=== PATIENT | male | born 1940 | race Caucasian/White ===

== ENCOUNTER → 2017-06-10 07:21 | Outpatient (CLI) | payer OTHER | END | disposition home or self-care (01) | LOC: LAB 07:21 | DX: I10 Essential (primary) hypertension (principal); E78.5 Hyperlipidemia, unspecified ==

== ENCOUNTER → 2018-01-07 | Outpatient (CLI) | payer OTHER | END | disposition home or self-care (01) | LOC: LAB 07:37 | DX: C61 Malignant neoplasm of prostate (principal); I10 Essential (primary) hypertension; E78.00 Pure hypercholesterolemia, unspecified ==

== ENCOUNTER 2018-03-08 07:16 | Outpatient (CLI) | payer OTHER | END 2018-03-08 15:00 | disposition home or self-care (01) | LOC: LAB 07:16 | DX: N40.1 Benign prostatic hyperplasia with lower urinary tract symptoms (principal) ==

== ENCOUNTER 2018-04-15 07:40 | Outpatient (CLI) | payer OTHER | END 2018-04-15 07:50 | disposition home or self-care (01) | LOC: LAB 07:40 | DX: I11.9 Hypertensive heart disease without heart failure (principal); E78.00 Pure hypercholesterolemia, unspecified ==

== ENCOUNTER 2018-05-25 08:10 | Outpatient (CLI) | payer OTHER | END 2018-05-25 19:02 | disposition home or self-care (01) | LOC: LAB 08:10 | DX: Z85.46 Personal history of malignant neoplasm of prostate (principal) ==

== ENCOUNTER 2018-08-24 07:16 | Outpatient (CLI) | payer OTHER | END 2018-08-24 07:33 | disposition home or self-care (01) | LOC: LAB 07:16 | DX: I11.9 Hypertensive heart disease without heart failure (principal); E78.00 Pure hypercholesterolemia, unspecified ==

== ENCOUNTER → 2018-11-04 09:02 | Outpatient (CLI) | payer OTHER | END | disposition home or self-care (01) | LOC: LAB 09:02 | DX: C61 Malignant neoplasm of prostate (principal) ==

== ENCOUNTER 2018-12-15 08:52 | Outpatient (CLI) | payer OTHER | END 2018-12-15 09:17 | disposition home or self-care (01) | LOC: LAB 08:52 | DX: C61 Malignant neoplasm of prostate (principal) ==

== ENCOUNTER 2019-02-14 07:09 | Outpatient (CLI) | payer OTHER | END 2019-02-14 07:13 | disposition home or self-care (01) | LOC: LAB 07:09 | DX: I11.9 Hypertensive heart disease without heart failure (principal); E78.00 Pure hypercholesterolemia, unspecified; C61 Malignant neoplasm of prostate ==

== ENCOUNTER 2019-05-23 07:13 | Outpatient (CLI) | payer OTHER | END 2019-05-23 07:20 | disposition home or self-care (01) | LOC: LAB 07:13 | DX: I10 Essential (primary) hypertension (principal); E78.00 Pure hypercholesterolemia, unspecified ==

== ENCOUNTER 2019-07-14 08:56 | Outpatient (CLI) | payer OTHER | END 2019-07-14 15:00 | disposition home or self-care (01) | LOC: LAB 08:56 | DX: N40.1 Benign prostatic hyperplasia with lower urinary tract symptoms (principal) ==

== ENCOUNTER → 2019-12-01 06:58 | Outpatient (CLI) | payer OTHER | END | disposition home or self-care (01) | LOC: LAB 06:58 | PROVIDERS: ATTEND Internal Medicine Cardiovascular Disease | DX: C61 Malignant neoplasm of prostate (principal); I10 Essential (primary) hypertension ==

== ENCOUNTER 2019-12-29 07:18 | Outpatient (CLI) | payer OTHER | END 2019-12-29 07:22 | disposition home or self-care (01) | LOC: LAB 07:18 | PROVIDERS: ATTEND Urology | DX: C61 Malignant neoplasm of prostate (principal); I10 Essential (primary) hypertension; R97.20 Elevated prostate specific antigen [PSA]; N39.0 Urinary tract infection, site not specified ==

== ENCOUNTER → 2020-03-20 07:22 | Outpatient (CLI) | payer OTHER | END | disposition home or self-care (01) | LOC: LAB 07:22 | PROVIDERS: ATTEND Internal Medicine Cardiovascular Disease | DX: I10 Essential (primary) hypertension (principal); E78.00 Pure hypercholesterolemia, unspecified; C61 Malignant neoplasm of prostate ==

== ENCOUNTER 2020-05-30 15:14 | Outpatient (CLI) | payer OTHER | END 2020-05-30 15:19 | disposition home or self-care (01) | LOC: LAB 15:14 | DX: D68.8 Other specified coagulation defects (principal); D64.89 Other specified anemias ==

== ENCOUNTER 2020-07-17 08:08 | Outpatient (CLI) | payer OTHER | END 2020-07-17 08:15 | disposition home or self-care (01) | LOC: LAB 08:08 | PROVIDERS: ATTEND Internal Medicine Cardiovascular Disease | DX: E78.00 Pure hypercholesterolemia, unspecified (principal); I10 Essential (primary) hypertension; M60.009 Infective myositis, unspecified site ==

== ENCOUNTER → 2020-11-01 08:10 | Outpatient (CLI) | payer OTHER | END | disposition home or self-care (01) | LOC: LAB 08:10 | PROVIDERS: ATTEND Internal Medicine Cardiovascular Disease | DX: E78.00 Pure hypercholesterolemia, unspecified (principal) ==

== ENCOUNTER 2021-03-27 07:40 | Outpatient (CLI) | payer OTHER | END 2021-03-27 07:43 | disposition home or self-care (01) | LOC: LAB 07:40 | PROVIDERS: ATTEND Internal Medicine Cardiovascular Disease | DX: I11.9 Hypertensive heart disease without heart failure (principal); C61 Malignant neoplasm of prostate ==

== ENCOUNTER 2021-08-06 07:53 | Outpatient (CLI) | payer OTHER | END 2021-08-06 07:54 | disposition home or self-care (01) | LOC: LAB 07:53 | PROVIDERS: ATTEND Internal Medicine Cardiovascular Disease | DX: C61 Malignant neoplasm of prostate (principal); I10 Essential (primary) hypertension; I44.0 Atrioventricular block, first degree; E78.00 Pure hypercholesterolemia, unspecified ==

== ENCOUNTER → 2022-01-09 07:52 | Outpatient (CLI) | payer OTHER | END | disposition home or self-care (01) | LOC: LAB 07:52 | PROVIDERS: ATTEND Internal Medicine Cardiovascular Disease | DX: I10 Essential (primary) hypertension (principal); C61 Malignant neoplasm of prostate ==

== ENCOUNTER 2022-01-22 07:47 | Outpatient (CLI) | payer OTHER | END 2022-01-22 07:48 | disposition home or self-care (01) | LOC: LAB 07:47 | PROVIDERS: ATTEND Specialist | DX: C61 Malignant neoplasm of prostate (principal); E78.00 Pure hypercholesterolemia, unspecified; E11.9 Type 2 diabetes mellitus without complications; R97.20 Elevated prostate specific antigen [PSA]; N40.3 Nodular prostate with lower urinary tract symptoms ==

== ENCOUNTER 2022-04-22 08:37 | Outpatient (CLI) | payer OTHER | END 2022-04-22 09:42 | disposition home or self-care (01) | LOC: LAB 08:37 | DX: I10 Essential (primary) hypertension (principal); E78.00 Pure hypercholesterolemia, unspecified ==

== ENCOUNTER 2022-10-23 07:52 | Outpatient (CLI) | payer OTHER | END 2022-10-23 07:58 | disposition home or self-care (01) | LOC: LAB 07:52 | PROVIDERS: ATTEND Internal Medicine Cardiovascular Disease | DX: I10 Essential (primary) hypertension (principal) ==

== ENCOUNTER 2023-01-09 10:43 | Outpatient (CLI) | payer OTHER | END 2023-01-09 10:49 | disposition home or self-care (01) | LOC: RAD 10:43 | PROVIDERS: ATTEND General Practice | DX: I10 Essential (primary) hypertension (principal) ==

== ENCOUNTER 2024-06-07 09:57 | Outpatient (CLI) | payer OTHER | END 2024-06-07 10:09 | disposition home or self-care (01) | LOC: SONOGRAMA 09:57 | PROVIDERS: ATTEND Urology | DX: R31.0 Gross hematuria (principal) ==

== ENCOUNTER 2024-07-23 15:49 | Emergency (ER) | payer OTHER ==
[~2024-07-23] VITALS: Ht 170.2 cm; Wt 86.2 kg
[2024-07-23] MEDS ORDERED: NORVASC2.5 MG PO (16:04)
[2024-07-23] MEDS ORDERED: AVAPRO300 MG PO (16:04)
[2024-07-23 17:47] LABS: HEMATOCRIT 38.3 % (39.0-48.0); HEMOGLOBIN 12.9 g/dL (13-16.00); MEAN CELL VOLUME 92.7 fL (80.0-100.00); MEAN CORPUSCULAR HEMOGLOBIN 31.3 pg (27.00-32.0); MEAN CORPUSCULAR HGB CONC 33.7 g/dl (32.0-36.0); PLATELET COUNT 225 K/uL (150-450); RED BLOOD COUNT 4.13 M/uL (4.00-6.00); RED CELL DISTRIBUTION WIDTH 13.6 % (11.5-14.5)
[2024-07-23 18:10] LABS: ALBUMIN 3.6 gm/dL (3.4-5.0); BILIRUBIN TOTAL 1.51 mg/dL (0.3-1.2); CALCIUM 8.8 mg/dL (8.5-10.1); CREATININE SERUM 1.02 mg/dL (0.70-1.30); GFR 69.41; GLOBULINA 3.4 G/DL (2.4-3.5); POTASSIUM 4.21 mEq/L (3.5-5.1)
[2024-07-23 19:01] LABS: PH,URINE 6.5 (5.0-8.0); URINE APPEARANCE Clear; URINE BILIRRUBIN Negative (NEGATIVE); URINE BLOOD Large; URINE COLOR Orange; URINE GLUCOSE Negative (NEGATIVE); URINE KETONE Trace (NEGATIVE); URINE LEUKOCYTE Trace; URINE NITRATE Negative; URINE PROTEIN 30 (NEGATIVE); URINE UROBILINOGEN 0.2 E.U./dl
[2024-07-23 19:05] LABS: URINE BACTERIA 30.5 uL (0.0-1933); URINE RBC 390.6 uL (0.0-20.8); URINE WBC 20.7 uL (0.0-23.2)
[2024-07-23] MEDS ORDERED: TAMSULOSIN HCL 0.4 MG CAP PO ONE (19:15)
[2024-07-23 20:33] LABS: URINE CAST 0.14 uL (0.0-1.40)
== END 2024-07-23 20:08 | disposition home or self-care (01) ==
LOC: ER 15:52
PROVIDERS: Emergency Medicine
DX: R33.8 Other retention of urine (principal); I10 Essential (primary) hypertension

== ENCOUNTER → 2025-01-30 | Emergency (ER) | payer OTHER ==
[~2025-01-30] VITALS: Ht 172.7 cm; Wt 86.2 kg
[~2025-01-30] MED LIST: AVAPRO300 MG PO; NORVASC2.5 MG PO
== END | disposition left against medical advice (07) ==
LOC: ER 14:52
DX: Z53.21 Procedure and treatment not carried out due to patient leaving prior to being seen by health care provider (principal)